=== PATIENT | male | born 1970 | race Caucasian/White ===

== ENCOUNTER 2019-01-22 19:40 | Inpatient (IN) | payer MEDICARE, OTHER ==
--- NOTE | 2019-01-22 20:24 | ED ---
Psych HPI - General Stated Complaint: Mental Health Time Seen by Provider: 01/22/19 19:57 Source: patient, EMS Mode of arrival: EMS Limitations: no limitations - History of Present Illness Initial Comments: 48-year-old male presents emergency department via EMS for psychiatric ev aluation. Patient's been having increasing depression, anxiety issues. Patient states is on medications are not helping. He denies being suicidal or homicidal. Patient states that his father called EMS admitted come to the hospital. Patient has been admitted to psychiatric sodium the past. - Related Data Home Medications Medication Instructions Recorded Confirmed Aspirin EC [Ecotrin Low Dose] 81 mg PO DAILY 01/22/19 01/22/19 Calcium Carbonate [Tums] 500 mg PO TID PRN 01/22/19 01/22/19 Cholecalciferol [Vitamin D3] 3,000 unit PO DAILY 01/22/19 01/22/19 Divalproex [Depakote] 1,000 mg PO BID 01/22/19 01/22/19 Enalapril [Vasotec] 5 mg PO DAILY 01/22/19 01/22/19 Insulin Glargine,Hum.rec.anlog 40 unit SQ HS 01/22/19 01/22/19 [Basaglar Kwikpen U-100] Insulin Regular, Human [NovoLIN R] 10 unit SQ AC-TID 01/22/19 01/22/19 Levothyroxine Sodium [Levoxyl] 125 mcg PO DAILY 01/22/19 01/22/19 [place] Carbonate 600 mg PO BID 01/22/19 01/22/19 Lovastatin [Mevacor] 20 mg PO HS 01/22/19 01/22/19 Tamsulosin [Flomax] 0.4 mg PO DAILY 01/22/19 01/22/19 Trihexyphenidyl HCl 5 mg PO BID 01/22/19 01/22/19 metFORMIN HCL [Glucophage] 1,000 mg PO BID 01/22/19 01/22/19 risperiDONE [RisperDAL] 8 mg PO HS 01/22/19 01/22/19 Allergies Allergy/AdvReac Type Severity Reaction Status Date / Time No Known Allergies Allergy Verified 01/22/19 20:14 Review of Systems ROS Statement: Those systems with pertinent positive or pertinent negative responses have been documented in the HPI. ROS Other: All systems not noted in ROS Statement are negative. Past Medical History Past Medical History: Hypertension History of Any Multi-Drug Resistant Organisms: None Reported Additional Past Surgical History / Comment(s): right and left shoulder repairs, Past Psychological History: Schizoaffective Disorder Smoking Status: Current every day smoker Past Alcohol Use History: None Reported Past Drug Use History: None Reported General Exam Limitations: no limitations General appearance: alert, in no apparent distress Head exam: Present: atraumatic, normocephalic, normal inspection Neck exam: Present: normal inspection. Absent: tenderness, meningismus, lymphadenopathy Respiratory exam: Present: normal lung sounds bilaterally. Absent: respiratory distress, wheezes, rales, rhonchi, stridor Cardiovascular Exam: Present: regular rate, normal rhythm, normal heart sounds. Absent: systolic murmur, diastolic murmur, rubs, gallop, clicks Neurological exam: Present: alert, oriented X3, CN II-XII intact Psychiatric exam: Present: anxious Course Vital Signs 01/22/19 01/23/19 01/23/19 19:44 08:43 20:21 Temperature 97.8 F 97.6 F Pulse Rate 76 55 L 58 L Respiratory 17 18 14 Rate Blood Pressure 150/81 153/70 143/80 O2 Sat by Pulse 96 97 99 Oximetry Medical Decision Making - Lab Data Result diagrams: 01/23/19 13:27 01/23/19 13:27 Lab Results 01/22/19 01/23/19 01/23/19 Range/Units 20:45 06:56 08:23 WBC (3.8-10.6) k/uL RBC (4.30-5.90) m/uL Hgb (13.0-17.5) gm/dL Hct (39.0-53.0) % MCV (80.0-100.0) fL MCH (25.0-35.0) pg MCHC (31.0-37.0) g/dL RDW (11.5-15.5) % Plt Count (150-450) k/uL Neutrophils % % Lymphocytes % % Monocytes % % Eosinophils % % Basophils % % Neutrophils # (1.3-7.7) k/uL Lymphocytes # (1.0-4.8) k/uL Monocytes # (0-1.0) k/uL Eosinophils # (0-0.7) k/uL Basophils # (0-0.2) k/uL Sodium (137-145) mmol/L Potassium (3.5-5.1) mmol/L Chloride (98-107) mmol/L Carbon Dioxide (22-30) mmol/L Anion Gap mmol/L BUN (9-20) mg/dL Creatinine (0.66-1.25) mg/dL Est GFR (CKD-EPI)AfAm (>60 ml/min/1.73 sqM) Est GFR (CKD-EPI)NonAf (>60 ml/min/1.73 sqM) Glucose (74-99) mg/dL POC Glucose (mg/dL) 180 H 358 H (75-99) mg/dL POC Glu [employer] ID Savanna Pyle Meghan Calcium (8.4-10.2) mg/dL Total Bilirubin (0.2-1.3) mg/dL AST (17-59) U/L ALT (21-72) U/L Alkaline Phosphatase (38-126) U/L Total Protein (6.3-8.2) g/dL Albumin (3.5-5.0) g/dL Urine Color Urine Appearance (Clear) Urine pH (5.0-8.0) Ur Specific [place] (1.001-1.035) Urine Protein (Negative) Urine Glucose (UA) (Negative) Urine Ketones (Negative) Urine Blood (Negative) Urine Nitrite (Negative) Urine Bilirubin (Negative) Urine Urobilinogen (<2.0) mg/dL Ur Leukocyte Esterase (Negative) Urine RBC (0-5) /hpf Urine Opiates Screen Not Detected (NotDetected) Ur Oxycodone Screen Not Detected (NotDetected) Urine Methadone Screen Not Detected (NotDetected) Ur Propoxyphene Screen Not Detected (NotDetected) Ur Barbiturates Screen Not Detected (NotDetected) U Tricyclic Antidepress Not Detected (NotDetected) Ur Phencyclidine Scrn Not Detected (NotDetected) Ur Amphetamines Screen Not Detected (NotDetected) U Methamphetamines Scrn Not Detected (NotDetected) U Benzodiazepines Scrn Not Detected (NotDetected) Urine Cocaine Screen Not Detected (NotDetected) U Marijuana (THC) Screen Detected H (NotDetected) 01/23/19 01/23/19 01/23/19 Range/Units 09:06 12:02 12:48 WBC (3.8-10.6) k/uL RBC (4.30-5.90) m/uL Hgb (13.0-17.5) gm/dL Hct (39.0-53.0) % MCV (80.0-100.0) fL MCH (25.0-35.0) pg MCHC (31.0-37.0) g/dL RDW (11.5-15.5) % Plt Count (150-450) k/uL Neutrophils % % Lymphocytes % % Monocytes % % Eosinophils % % Basophils % % Neutrophils # (1.3-7.7) k/uL Lymphocytes # (1.0-4.8) k/uL Monocytes # (0-1.0) k/uL Eosinophils # (0-0.7) k/uL Basophils # (0-0.2) k/uL Sodium (137-145) mmol/L Potassium (3.5-5.1) mmol/L Chloride (98-107) mmol/L Carbon Dioxide (22-30) mmol/L Anion Gap mmol/L BUN (9-20) mg/dL Creatinine (0.66-1.25) mg/dL Est GFR (CKD-EPI)AfAm (>60 ml/min/1.73 sqM) Est GFR (CKD-EPI)NonAf (>60 ml/min/1.73 sqM) Glucose (74-99) mg/dL POC Glucose (mg/dL) 341 H 166 H 245 H (75-99) mg/dL POC Glu [employer] ID Saji Perez, Dimple Darion, Dimple Calcium (8.4-10.2) mg/dL Total Bilirubin (0.2-1.3) mg/dL AST (17-59) U/L ALT (21-72) U/L Alkaline Phosphatase (38-126) U/L Total Protein (6.3-8.2) g/dL Albumin (3.5-5.0) g/dL Urine Color Urine Appearance (Clear) Urine pH (5.0-8.0) Ur Specific [place] (1.001-1.035) Urine Protein (Negative) Urine Glucose (UA) (Negative) Urine Ketones (Negative) Urine Blood (Negative) Urine Nitrite (Negative) Urine Bilirubin (Negative) Urine Urobilinogen (<2.0) mg/dL Ur Leukocyte Esterase (Negative) Urine RBC (0-5) /hpf Urine Opiates Screen (NotDetected) Ur Oxycodone Screen (NotDetected) Urine Methadone Screen (NotDetected) Ur Propoxyphene Screen (NotDetected) Ur Barbiturates Screen (NotDetected) U Tricyclic Antidepress (NotDetected) Ur Phencyclidine Scrn (NotDetected) Ur Amphetamines Screen (NotDetected) U Methamphetamines Scrn (NotDetected) U Benzodiazepines Scrn (NotDetected) Urine Cocaine Screen (NotDetected) U Marijuana (THC) Screen (NotDetected) 01/23/19 01/23/19 01/23/19 Range/Units 13:27 13:27 13:35 WBC 7.6 (3.8-10.6) k/uL RBC 5.51 (4.30-5.90) m/uL Hgb 14.8 (13.0-17.5) gm/dL Hct 47.5 (39.0-53.0) % MCV 86.2 (80.0-100.0) fL MCH 26.8 (25.0-35.0) pg MCHC 31.1 (31.0-37.0) g/dL RDW 14.4 (11.5-15.5) % Plt Count 209 (150-450) k/uL Neutrophils % 63 % Lymphocytes % 28 % Monocytes % 4 % Eosinophils % 3 % Basophils % 1 % Neutrophils # 4.8 (1.3-7.7) k/uL Lymphocytes # 2.2 (1.0-4.8) k/uL Monocytes # 0.3 (0-1.0) k/uL Eosinophils # 0.2 (0-0.7) k/uL Basophils # 0.1 (0-0.2) k/uL Sodium 139 (137-145) mmol/L Potassium 4.7 (3.5-5.1) mmol/L Chloride 103 (98-107) mmol/L Carbon Dioxide 30 (22-30) mmol/L Anion Gap 6 mmol/L BUN 17 (9-20) mg/dL Creatinine 0.98 (0.66-1.25) mg/dL Est GFR (CKD-EPI)AfAm >90 (>60 ml/min/1.73 sqM) Est GFR (CKD-EPI)NonAf >90 (>60 ml/min/1.73 sqM) Glucose 242 H (74-99) mg/dL POC Glucose (mg/dL) (75-99) mg/dL POC Glu [employer] ID Calcium 9.7 (8.4-10.2) mg/dL Total Bilirubin 0.4 (0.2-1.3) mg/dL AST 22 (17-59) U/L ALT 32 (21-72) U/L Alkaline Phosphatase 79 (38-126) U/L Total Protein 6.6 (6.3-8.2) g/dL Albumin 3.9 (3.5-5.0) g/dL Urine Color Light Yellow Urine Appearance Cloudy (Clear) Urine pH 7.0 (5.0-8.0) Ur Specific [place] 1.004 (1.001-1.035) Urine Protein Negative (Negative) Urine Glucose (UA) 1+ H (Negative) Urine Ketones Negative (Negative) Urine Blood Negative (Negative) Urine Nitrite Negative (Negative) Urine Bilirubin Negative (Negative) Urine Urobilinogen <2.0 (<2.0) mg/dL Ur Leukocyte Esterase Negative (Negative) Urine RBC <1 (0-5) /hpf Urine Opiates Screen Not Detected (NotDetected) Ur Oxycodone Screen Not Detected (NotDetected) Urine Methadone Screen Not Detected (NotDetected) Ur Propoxyphene Screen Not Detected (NotDetected) Ur Barbiturates Screen Not Detected (NotDetected) U Tricyclic Antidepress Not Detected (NotDetected) Ur Phencyclidine Scrn Not Detected (NotDetected) Ur Amphetamines Screen Not Detected (NotDetected) U Methamphetamines Scrn Not Detected (NotDetected) U Benzodiazepines Scrn Not Detected (NotDetected) Urine Cocaine Screen Not Detected (NotDetected) U Marijuana (THC) Screen Detected H (NotDetected) 01/23/19 Range/Units 20:31 WBC (3.8-10.6) k/uL RBC (4.30-5.90) m/uL Hgb (13.0-17.5) gm/dL Hct (39.0-53.0) % MCV (80.0-100.0) fL MCH (25.0-35.0) pg MCHC (31.0-37.0) g/dL RDW (11.5-15.5) % Plt Count (150-450) k/uL Neutrophils % % Lymphocytes % % Monocytes % % Eosinophils % % Basophils % % Neutrophils # (1.3-7.7) k/uL Lymphocytes # (1.0-4.8) k/uL Monocytes # (0-1.0) k/uL Eosinophils # (0-0.7) k/uL Basophils # (0-0.2) k/uL Sodium (137-145) mmol/L Potassium (3.5-5.1) mmol/L Chloride (98-107) mmol/L Carbon Dioxide (22-30) mmol/L Anion Gap mmol/L BUN (9-20) mg/dL Creatinine (0.66-1.25) mg/dL Est GFR (CKD-EPI)AfAm (>60 ml/min/1.73 sqM) Est GFR (CKD-EPI)NonAf (>60 ml/min/1.73 sqM) Glucose (74-99) mg/dL POC Glucose (mg/dL) 189 H (75-99) mg/dL POC Glu [employer] Mechanic ID Oswaldo Collins A Calcium (8.4-10.2) mg/dL Total Bilirubin (0.2-1.3) mg/dL AST (17-59) U/L ALT (21-72) U/L Alkaline Phosphatase (38-126) U/L Total Protein (6.3-8.2) g/dL Albumin (3.5-5.0) g/dL Urine Color Urine Appearance (Clear) Urine pH (5.0-8.0) Ur Specific [place] (1.001-1.035) Urine Protein (Negative) Urine Glucose (UA) (Negative) Urine Ketones (Negative) Urine Blood (Negative) Urine Nitrite (Negative) Urine Bilirubin (Negative) Urine Urobilinogen (<2.0) mg/dL Ur Leukocyte Esterase (Negative) Urine RBC (0-5) /hpf Urine Opiates Screen (NotDetected) Ur Oxycodone Screen (NotDetected) Urine Methadone Screen (NotDetected) Ur Propoxyphene Screen (NotDetected) Ur Barbiturates Screen (NotDetected) U Tricyclic Antidepress (NotDetected) Ur Phencyclidine Scrn (NotDetected) Ur Amphetamines Screen (NotDetected) U Methamphetamines Scrn (NotDetected) U Benzodiazepines Scrn (NotDetected) Urine Cocaine Screen (NotDetected) U Marijuana (THC) Screen (NotDetected) Disposition Clinical Impression: Schizoaffective disorder, Depression, Acute anxiety Disposition: TRANSFER TO PSYCH HOSP/UNIT Condition: Stable
[2019-01-22 21:09] LABS: Amphetamine Screen,Urine Not Detected (NotDetected); Barbiturate Screen,Urine Not Detected (NotDetected); Benzodiazepines Screen,Urine Not Detected (NotDetected); Cocaine Screen,Urine Not Detected (NotDetected); Methadone Screen, Urine Not Detected (NotDetected); Opiate Screen,Urine Not Detected (NotDetected); Phencyclidine Screen,Urine Not Detected (NotDetected); Tricyclic Antidepressant,Urine Not Detected (NotDetected); Urn Cannabinoid Scrn Detected (NotDetected)
[2019-01-22 21:10] LABS: Oxycodone Screen, Urine Not Detected (NotDetected)
[2019-01-23] MEDS ORDERED: ZIPRASIDONE 20 MG CAP PO STA (02:15)
[2019-01-23] MEDS ORDERED: ZIPRASIDONE 20 MG VIAL IM STA (02:15)
[2019-01-23] MEDS ORDERED: ZOLPIDEM 10 MG TAB PO ONE (04:30)
[2019-01-23 06:58] LABS: Glucose,Whole Blood 180 mg/dL (75-99)
[2019-01-23 08:24] LABS: Glucose,Whole Blood 358 mg/dL (75-99)
[2019-01-23] MEDS: INSULIN REGULAR 100 UNIT/ML VIAL SQ SCH ×2 (08:24→12:00)
[2019-01-23] MEDS: LITHIUM CARBONATE 300 MG CAP PO SCH ×2 (08:28→22:31)
[2019-01-23] MEDS: DIVALPROEX 500 MG TABLET.DR PO SCH ×2 (08:36→22:29)
[2019-01-23 09:08] LABS: Glucose,Whole Blood 341 mg/dL (75-99)
[2019-01-23 12:04] LABS: Glucose,Whole Blood 166 mg/dL (75-99)
[2019-01-23 12:49] LABS: Glucose,Whole Blood 245 mg/dL (75-99)
[2019-01-23 13:41] LABS: Basophils # (A) 0.1 k/uL (0-0.2); Basophils % (A) 1 %; Eosinophils # (A) 0.2 k/uL (0-0.7); Eosinophils % (A) 3 %; HCT 47.5 % (39.0-53.0); HGB 14.8 gm/dL (13.0-17.5); Lymphocytes # (A) 2.2 k/uL (1.0-4.8); Lymphocytes % (A) 28 %; MCH 26.8 pg (25.0-35.0); MCHC 31.1 g/dL (31.0-37.0); MCV 86.2 fL (80.0-100.0); Mean Platelet Volume 6.8; Monocytes # (A) 0.3 k/uL (0-1.0); Monocytes % (A) 4 %; Neutrophils # (A) 4.8 k/uL (1.3-7.7); Neutrophils % (A) 63 %; Platelet Count 209 k/uL (150-450); RBC 5.51 m/uL (4.30-5.90); RDW 14.4 % (11.5-15.5); WBC 7.6 k/uL (3.8-10.6)
[2019-01-23 13:53] LABS: ALT 32 U/L (21-72); AST 22 U/L (17-59); Albumin 3.9 g/dL (3.5-5.0); Alkaline Phosphatase 79 U/L (38-126); Anion Gap 6 mmol/L; Blood Urea Nitrogen 17 mg/dL (9-20); Calcium 9.7 mg/dL (8.4-10.2); Carbon Dioxide 30 mmol/L (22-30); Chloride 103 mmol/L (98-107); Glucose 242 mg/dL (74-99); Potassium 4.7 mmol/L (3.5-5.1); Sodium 139 mmol/L (137-145); Total Bilirubin 0.4 mg/dL (0.2-1.3); Total Protein 6.6 g/dL (6.3-8.2)
[2019-01-23 14:03] LABS: Appearance,Urine Cloudy (Clear); Bilirubin,Urine Negative (Negative); Blood,Urine Negative (Negative); Color,Urine Light Yellow; Glucose,Urine (UA) 1+ (Negative); Ketones,Urine Negative (Negative); Leukocyte Esterase,Urine Negative (Negative); Nitrite,Urine Negative (Negative); Protein,Urine Negative (Negative); RBC,Urine <1 /hpf (0-5); Specific Gravity,Urine 1.004 (1.001-1.035); Urobilinogen,Urine <2.0 mg/dL (<2.0)
[2019-01-23 14:19] LABS: Amphetamine Screen,Urine Not Detected (NotDetected); Barbiturate Screen,Urine Not Detected (NotDetected); Benzodiazepines Screen,Urine Not Detected (NotDetected); Cocaine Screen,Urine Not Detected (NotDetected); Methadone Screen, Urine Not Detected (NotDetected); Opiate Screen,Urine Not Detected (NotDetected); Oxycodone Screen, Urine Not Detected (NotDetected); Phencyclidine Screen,Urine Not Detected (NotDetected); Tricyclic Antidepressant,Urine Not Detected (NotDetected); Urn Cannabinoid Scrn Detected (NotDetected)
[2019-01-23 20:32] LABS: Glucose,Whole Blood 189 mg/dL (75-99)
[2019-01-23] MEDS ORDERED: MAG HYDROX/AL HYDROX/SIMETH 30 ML CUP PO PRN (21:46)
[2019-01-23] MEDS ORDERED: ZIPRASIDONE 20 MG VIAL IM PRN (21:46)
[2019-01-23] MEDS ORDERED: LORazepam 1 MG TAB PO PRN (21:46)
[2019-01-23] MEDS ORDERED: ACETAMINOPHEN TAB 325 MG TAB PO PRN (21:46)
[2019-01-23] MEDS ORDERED: MAGNESIUM HYDROXIDE 2,400 MG/10 ML CUP PO PRN (21:46)
[2019-01-23 22:10] LABS: Glucose,Whole Blood 196 mg/dL (75-99)
[2019-01-24] MEDS ORDERED: CALCIUM CARBONATE 500 MG CHEWABLE PO PRN (00:27)
--- NOTE | 2019-01-24 00:30 | P.HPMEDMHU ---
History of Present Illness H&P Date: 01/24/19 (Consult from Dr. Gomez for HPI) Chief Complaint: U HPI The patient is a 48-year-old male the past focal history of schizoaffective with his schizophrenia and bipolar disorder, type 2 diabetes, dyslipidemia, pH who is admitted to the acute inpatient psychiatry unit after he was brought to the ER by the [facility] Apparently the patient's father reported that his son put been living with him for the last 2 weeks has been having increased erratic behavior. Apparently the patient stopped taking his medications approximately 2 weeks ago despite his active court order for mental health treatment, the patient's father reports the patient has been mumbling to himself and talking to himself and also went into a neighbor's home and went through their belongings. The patient himself denies any complaints today, reports a history of type 2 diabetes that his A1c is relatively well controlled At 6.5. She denies any chest pain, shortness of breath, or hypoglycemic episodes. UDS done in the ER was positive for THC Review of Systems Pertinent positives per HPI all other of systems otherwise negative Past Medical History Past Medical History: Hypertension History of Any Multi-Drug Resistant Organisms: None Reported Additional Past Surgical History / Comment(s): right and left shoulder repairs, Past Psychological History: Schizoaffective Disorder Smoking Status: Current every day smoker Past Alcohol Use History: None Reported Past Drug Use History: None Reported Medications and Allergies Home Medications Medication Instructions Recorded Confirmed Type Aspirin EC [Ecotrin Low Dose] 81 mg PO DAILY 01/22/19 01/22/19 History Calcium Carbonate [Tums] 500 mg PO TID PRN 01/22/19 01/22/19 History Cholecalciferol [Vitamin D3] 3,000 unit PO DAILY 01/22/19 01/22/19 History Divalproex [Depakote] 1,000 mg PO BID 01/22/19 01/22/19 History Enalapril [Vasotec] 5 mg PO DAILY 01/22/19 01/22/19 History Insulin Glargine,Hum.rec.anlog 40 unit SQ HS 01/22/19 01/22/19 History [Basagljohnnie Collins U-100] Insulin Regular, Human [NovoLIN R] 10 unit SQ AC-TID 01/22/19 01/22/19 History Levothyroxine Sodium [Levoxyl] 125 mcg PO DAILY 01/22/19 01/22/19 History [place] Carbonate 600 mg PO BID 01/22/19 01/22/19 History Lovastatin [Mevacor] 20 mg PO HS 01/22/19 01/22/19 History Tamsulosin [Flomax] 0.4 mg PO DAILY 01/22/19 01/22/19 History Trihexyphenidyl HCl 5 mg PO BID 01/22/19 01/22/19 History metFORMIN HCL [Glucophage] 1,000 mg PO BID 01/22/19 01/22/19 History risperiDONE [RisperDAL] 8 mg PO HS 01/22/19 01/22/19 History Allergies Allergy/AdvReac Type Severity Reaction Status Date / Time No Known Allergies Allergy Verified 01/22/19 20:14 Physical Exam Vitals: Vital Signs Temp Pulse Resp BP Pulse Ox 01/23/19 20:21 97.6 F 58 L 14 143/80 99 01/23/19 08:43 55 L 18 153/70 97 Constitutional: No acute distress, conversant, pleasant Eyes: Anicteric sclerae, moist conjunctiva, no lid-lag, PERRLA ENMT: NC/AT,Oropharynx clear, no erythema, exudates Neck:Supple, FROM, no masses, or JVD, No carotid bruits; No thyromegaly Lungs: Clear to auscultation, Clear to percussion, Normal respiratory effort, no accessory muscle use Cardiovascular: Heart regular in rate and rhythm, No murmurs, gallops, or rubs no peripheral edema Abdominal: Soft Nontender, nom distended, no guarding, no rebound or rigidity, Normoactive bowel sounds No hepatomegaly, No splenomegaly, No palpable mass No abdominal wall hernia noted Skin: Normal temperature, tone, texture, turgor, No induration No subcutaneous nodules, No rash, lesions, No ulcers Extremities:No digital cyanosis No clubbing, Pedal pulses intact and symmetrical Radial pulses intact and symmetrical Normal gait and station, No calf tenderness Psychiatric: Denies suicidal or homicidal ideation denying delusions or paranoia Neuro: Muscles Strength 5/5 in all 4 extremities, Sensation to light touch grossly present throughout, Cranial nerves II-XII grossly intact. No focal sensory deficits Cranial Nerve Examination - Cranial Nerves Cranial Nerve II- Optic: Intact Cranial Nerve III- Oculomotor: Intact Cranial Nerve IV- Trochlear: Intact Cranial Nerve V- Trigeminal: Intact Cranial Nerve - Abducens: Intact Cranial Nerve VII- Facial: Intact Cranial Nerve VIII- Auditory: Intact Cranial Nerve IX- Glossopharyngeal: Intact Cranial Nerve X- Vagus: Intact Cranial Nerve XI- Accessory: Intact Cranial Nerve XII- Hypoglossal: Intact Results CBC & Chem 7: 01/23/19 13:27 01/23/19 13:27 Labs: Abnormal Lab Results - Last 24 Hours (Table) 01/23/19 01/23/19 01/23/19 Range/Units 06:56 08:23 09:06 Glucose (74-99) mg/dL POC Glucose (mg/dL) 180 H 358 H 341 H (75-99) mg/dL Urine Glucose (UA) (Negative) U Marijuana (THC) Screen (NotDetected) 01/23/19 01/23/19 01/23/19 Range/Units 12:02 12:48 13:27 Glucose 242 H (74-99) mg/dL POC Glucose (mg/dL) 166 H 245 H (75-99) mg/dL Urine Glucose (UA) (Negative) U Marijuana (THC) Screen (NotDetected) 01/23/19 01/23/19 01/23/19 Range/Units 13:35 20:31 22:09 Glucose (74-99) mg/dL POC Glucose (mg/dL) 189 H 196 H (75-99) mg/dL Urine Glucose (UA) 1+ H (Negative) U Marijuana (THC) Screen Detected H (NotDetected) Assessment and Plan (1) Schizoaffective disorder Current Visit: Yes Status: Acute Code(s): F25.9 - SCHIZOAFFECTIVE DISORDER, UNSPECIFIED SNOMED Code(s): 48785771 (2) Type 2 diabetes mellitus Current Visit: Yes Status: Acute Code(s): E11.9 - TYPE 2 DIABETES MELLITUS WITHOUT COMPLICATIONS SNOMED Code(s): 49231402 (3) Hyperlipidemia Current Visit: Yes Status: Acute Code(s): E78.5 - HYPERLIPIDEMIA, UNSPECIFIED SNOMED Code(s): 54686584 (4) Essential hypertension Current Visit: Yes Status: Acute Code(s): I10 - ESSENTIAL (PRIMARY) HYPERTENSION SNOMED Code(s): 12103879 (5) History of BPH Current Visit: Yes Status: Acute Code(s): Z87.438 - PERSONAL HISTORY OF OTHER DISEASES OF MALE GENITAL ORGANS SNOMED Code(s): 425512222 (6) Marijuana abuse Current Visit: Yes Status: Acute Code(s): F12.10 - CANNABIS ABUSE, [facility] OMPLICATED SNOMED Code(s): 07726856 Plan: The patient is admitted to the acute inpatient psychiatry unit we'll defer to primary psychiatry team under Dr. Gomez for ongoing psychotropic therapy in coordination with cognitive behavioral therapy. The patient's blood pressure is slightly elevated we'll restart use of his SALOME inhibitor. We'll also continue Accu-Cheks along with resumption of his home insulin regimen along with correctional scale coverage. Will plan to sign off on this patient I appreciate the opportunity to be involved in ongoing care of this patient, for any further questions please don't hesitate to contact the [facility] inpatient team
[2019-01-24] MEDS ORDERED: LORazepam 2 MG/ML INJ IM STA (04:13)
[2019-01-24] MEDS ORDERED: LORazepam 2 MG/ML INJ IM PRN (04:58)
[2019-01-24] MEDS: INSULIN REGULAR 100 UNIT/ML VIAL SQ SCH ×4 (07:33→18:02)
[2019-01-24 07:41] LABS: Glucose,Whole Blood 234 mg/dL (75-99)
[2019-01-24] MEDS: LEVOTHYROXINE 125 MCG TAB PO SCH (07:43)
[2019-01-24] MEDS: TRIHEXYPHENIDYL 2 MG TAB PO SCH ×3 (07:43→20:24)
[2019-01-24] MEDS: CHOLECALCIFEROL 1,000 UNIT TAB PO SCH (07:44)
[2019-01-24] MEDS: metFORMIN 500 MG TAB PO SCH ×2 (07:45→20:25)
[2019-01-24] MEDS: TAMSULOSIN 0.4 MG CAP.ER.24H PO SCH (07:45)
[2019-01-24] MEDS: DIVALPROEX 500 MG TABLET.DR PO SCH ×3 (07:45→20:24)
[2019-01-24] MEDS: LISINOPRIL 5 MG TAB PO SCH (07:46)
[2019-01-24] MEDS: LITHIUM CARBONATE 300 MG CAP PO SCH ×3 (07:46→20:24)
[2019-01-24] MEDS: ASPIRIN 81 MG PO SCH (07:52)
[2019-01-24] MEDS: NICOTINE 21MG/24HR PATCH TRANSDERM SCH (07:54)
[2019-01-24] MEDS ORDERED: DIVALPROEX 500 MG TABLET.DR PO SCH (09:00)
[2019-01-24 09:01] LABS: Lithium <0.2 mmol/L
[2019-01-24 09:06] LABS: Cholesterol 194 mg/dL (<200); HDL Cholesterol 47 mg/dL (40-60); LDL Cholesterol,Calculated 106 mg/dL (0-99); Triglycerides 206 mg/dL (<150)
[2019-01-24 09:09] LABS: Valproic Acid (Depakene) <10.0 ug/mL
[2019-01-24 12:29] LABS: Glucose,Whole Blood 189 mg/dL (75-99)
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
[2019-01-24 17:31] LABS: Glucose,Whole Blood 172 mg/dL (75-99)
[2019-01-24 20:13] LABS: Glucose,Whole Blood 209 mg/dL (75-99)
[2019-01-24] MEDS: risperiDONE 2 MG TAB PO SCH (20:24)
[2019-01-24] MEDS: ATORVASTATIN 10 MG TAB PO SCH (20:25)
[2019-01-24] MEDS: INSULIN DETEMIR (LEVEMIR) 100 UNIT/ML SYR SQ SCH (20:26)
[2019-01-24] MEDS ORDERED: INSULIN DETEMIR (LEVEMIR) 100 UNIT/ML SYR SQ SCH (21:00)
[2019-01-25] MEDS: LORazepam 1 MG TAB PO PRN (00:41)
[2019-01-25] MEDS: LEVOTHYROXINE 125 MCG TAB PO SCH (06:24)
[2019-01-25 06:41] LABS: Glucose,Whole Blood 159 mg/dL (75-99)
[2019-01-25] MEDS: INSULIN REGULAR 100 UNIT/ML VIAL SQ SCH ×3 (08:22→17:56)
[2019-01-25] MEDS: LISINOPRIL 5 MG TAB PO SCH (09:59)
[2019-01-25] MEDS: DIVALPROEX 500 MG TABLET.DR PO SCH ×2 (09:59→22:04)
[2019-01-25] MEDS: TAMSULOSIN 0.4 MG CAP.ER.24H PO SCH (09:59)
[2019-01-25] MEDS: LITHIUM CARBONATE 300 MG CAP PO SCH ×2 (10:00→22:05)
[2019-01-25] MEDS: metFORMIN 500 MG TAB PO SCH ×2 (10:00→22:03)
[2019-01-25] MEDS: ASPIRIN 81 MG PO SCH (10:01)
[2019-01-25] MEDS: CHOLECALCIFEROL 1,000 UNIT TAB PO SCH (10:02)
[2019-01-25] MEDS: TRIHEXYPHENIDYL 2 MG TAB PO SCH ×2 (10:03→22:04)
[2019-01-25] MEDS: NICOTINE 21MG/24HR PATCH TRANSDERM SCH (10:04)
[2019-01-25 12:29] LABS: Glucose,Whole Blood 259 mg/dL (75-99)
[2019-01-25 12:31] LABS: Hemoglobin A1C 7.5 % (4.0-6.0)
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
[2019-01-25 17:52] LABS: Glucose,Whole Blood 219 mg/dL (75-99)
[2019-01-25 20:16] LABS: Glucose,Whole Blood 331 mg/dL (75-99)
[2019-01-25] MEDS: INSULIN DETEMIR (LEVEMIR) 100 UNIT/ML SYR SQ SCH (22:02)
[2019-01-25] MEDS: risperiDONE 2 MG TAB PO SCH (22:03)
[2019-01-25] MEDS: ATORVASTATIN 10 MG TAB PO SCH (22:04)
[2019-01-26] MEDS: LORazepam 1 MG TAB PO PRN (01:39)
[2019-01-26] MEDS: LEVOTHYROXINE 125 MCG TAB PO SCH (05:41)
[2019-01-26 06:14] LABS: Glucose,Whole Blood 140 mg/dL (75-99)
[2019-01-26] MEDS: INSULIN REGULAR 100 UNIT/ML VIAL SQ SCH ×3 (07:55→17:45)
[2019-01-26] MEDS: DIVALPROEX 500 MG TABLET.DR PO SCH ×2 (08:18→21:24)
[2019-01-26] MEDS: CHOLECALCIFEROL 1,000 UNIT TAB PO SCH (08:18)
[2019-01-26] MEDS: metFORMIN 500 MG TAB PO SCH ×2 (08:18→21:24)
[2019-01-26] MEDS: LISINOPRIL 5 MG TAB PO SCH (08:18)
[2019-01-26] MEDS: LITHIUM CARBONATE 300 MG CAP PO SCH ×2 (08:18→21:24)
[2019-01-26] MEDS: ASPIRIN 81 MG PO SCH (08:18)
[2019-01-26] MEDS: TRIHEXYPHENIDYL 2 MG TAB PO SCH ×2 (08:19→21:23)
[2019-01-26] MEDS: NICOTINE 21MG/24HR PATCH TRANSDERM SCH (08:19)
[2019-01-26] MEDS: TAMSULOSIN 0.4 MG CAP.ER.24H PO SCH (08:19)
[2019-01-26 12:27] LABS: Glucose,Whole Blood 166 mg/dL (75-99)
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
[2019-01-26 17:24] LABS: Glucose,Whole Blood 225 mg/dL (75-99)
[2019-01-26 20:08] LABS: Glucose,Whole Blood 230 mg/dL (75-99)
[2019-01-26] MEDS ORDERED: INSULIN DETEMIR (LEVEMIR) 100 UNIT/ML SYR SQ SCH (21:00)
[2019-01-26] MEDS: ATORVASTATIN 10 MG TAB PO SCH (21:24)
[2019-01-26] MEDS: risperiDONE 2 MG TAB PO SCH (21:24)
[2019-01-27] MEDS: LEVOTHYROXINE 125 MCG TAB PO SCH (05:57)
[2019-01-27 06:17] LABS: Glucose,Whole Blood 182 mg/dL (75-99)
[2019-01-27] MEDS: INSULIN REGULAR 100 UNIT/ML VIAL SQ SCH ×3 (08:02→17:31)
[2019-01-27] MEDS: NICOTINE 21MG/24HR PATCH TRANSDERM SCH (08:32)
[2019-01-27] MEDS: ASPIRIN 81 MG PO SCH (08:32)
[2019-01-27] MEDS: CHOLECALCIFEROL 1,000 UNIT TAB PO SCH (08:32)
[2019-01-27] MEDS: TRIHEXYPHENIDYL 2 MG TAB PO SCH ×2 (08:33→20:16)
[2019-01-27] MEDS: metFORMIN 500 MG TAB PO SCH ×2 (08:33→20:16)
[2019-01-27] MEDS: DIVALPROEX 500 MG TABLET.DR PO SCH ×2 (08:33→20:16)
[2019-01-27] MEDS: LITHIUM CARBONATE 300 MG CAP PO SCH ×2 (08:33→20:16)
[2019-01-27] MEDS: TAMSULOSIN 0.4 MG CAP.ER.24H PO SCH (08:33)
[2019-01-27] MEDS: LISINOPRIL 5 MG TAB PO SCH (08:33)
[2019-01-27 12:32] LABS: Glucose,Whole Blood 180 mg/dL (75-99)
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
[2019-01-27 17:24] LABS: Glucose,Whole Blood 194 mg/dL (75-99)
[2019-01-27] MEDS: INSULIN ASPART (NovoLOG) 100 UNIT/ML VIAL SQ SCH ×2 (17:32→20:17)
[2019-01-27 20:06] LABS: Glucose,Whole Blood 234 mg/dL (75-99)
[2019-01-27] MEDS: ATORVASTATIN 10 MG TAB PO SCH (20:16)
[2019-01-27] MEDS: risperiDONE 2 MG TAB PO SCH (20:16)
[2019-01-27] MEDS: INSULIN DETEMIR (LEVEMIR) 100 UNIT/ML SYR SQ SCH (20:17)
[2019-01-27] MEDS: LORazepam 1 MG TAB PO PRN (22:47)
[2019-01-28 07:23] LABS: Glucose,Whole Blood 159 mg/dL (75-99)
[2019-01-28] MEDS: LEVOTHYROXINE 125 MCG TAB PO SCH (07:23)
[2019-01-28] MEDS: INSULIN ASPART (NovoLOG) 100 UNIT/ML VIAL SQ SCH ×4 (07:49→21:21)
[2019-01-28] MEDS: INSULIN REGULAR 100 UNIT/ML VIAL SQ SCH ×3 (07:50→17:46)
[2019-01-28] MEDS: CHOLECALCIFEROL 1,000 UNIT TAB PO SCH (08:53)
[2019-01-28] MEDS: ASPIRIN 81 MG PO SCH (08:53)
[2019-01-28] MEDS: DIVALPROEX 500 MG TABLET.DR PO SCH ×2 (08:54→20:47)
[2019-01-28] MEDS: metFORMIN 500 MG TAB PO SCH ×2 (08:54→20:50)
[2019-01-28] MEDS: TRIHEXYPHENIDYL 2 MG TAB PO SCH ×2 (08:54→20:47)
[2019-01-28] MEDS: TAMSULOSIN 0.4 MG CAP.ER.24H PO SCH (08:54)
[2019-01-28] MEDS: LISINOPRIL 5 MG TAB PO SCH (08:54)
[2019-01-28] MEDS: LITHIUM CARBONATE 300 MG CAP PO SCH ×2 (08:54→20:48)
[2019-01-28] MEDS: NICOTINE 21MG/24HR PATCH TRANSDERM SCH (09:01)
[2019-01-28 12:43] LABS: Glucose,Whole Blood 121 mg/dL (75-99)
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
[2019-01-28 17:21] LABS: Glucose,Whole Blood 246 mg/dL (75-99)
[2019-01-28 20:22] LABS: Glucose,Whole Blood 260 mg/dL (75-99)
[2019-01-28] MEDS: ATORVASTATIN 10 MG TAB PO SCH (20:48)
[2019-01-28] MEDS: risperiDONE 2 MG TAB PO SCH (20:48)
[2019-01-28] MEDS: INSULIN DETEMIR (LEVEMIR) 100 UNIT/ML SYR SQ SCH (21:21)
[2019-01-29] MEDS: LORazepam 1 MG TAB PO PRN ×2 (00:38→22:05)
[2019-01-29] MEDS: LEVOTHYROXINE 125 MCG TAB PO SCH (06:03)
[2019-01-29 06:28] LABS: Glucose,Whole Blood 158 mg/dL (75-99)
[2019-01-29] MEDS: INSULIN REGULAR 100 UNIT/ML VIAL SQ SCH ×3 (07:41→18:11)
[2019-01-29] MEDS: INSULIN ASPART (NovoLOG) 100 UNIT/ML VIAL SQ SCH ×4 (07:43→21:41)
[2019-01-29] MEDS: LISINOPRIL 5 MG TAB PO SCH (07:45)
[2019-01-29] MEDS: ASPIRIN 81 MG PO SCH (07:45)
[2019-01-29] MEDS: LITHIUM CARBONATE 300 MG CAP PO SCH ×2 (07:45→21:59)
[2019-01-29] MEDS: metFORMIN 500 MG TAB PO SCH ×2 (07:45→21:59)
[2019-01-29] MEDS: DIVALPROEX 500 MG TABLET.DR PO SCH ×2 (07:45→21:59)
[2019-01-29] MEDS: CHOLECALCIFEROL 1,000 UNIT TAB PO SCH (07:45)
[2019-01-29] MEDS: NICOTINE 21MG/24HR PATCH TRANSDERM SCH (07:46)
[2019-01-29] MEDS: TRIHEXYPHENIDYL 2 MG TAB PO SCH ×2 (07:46→22:00)
[2019-01-29] MEDS: TAMSULOSIN 0.4 MG CAP.ER.24H PO SCH (07:46)
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
[2019-01-29 12:40] LABS: Glucose,Whole Blood 148 mg/dL (75-99)
[2019-01-29 18:11] LABS: Glucose,Whole Blood 203 mg/dL (75-99)
[2019-01-29 19:57] LABS: Glucose,Whole Blood 269 mg/dL (75-99)
[2019-01-29] MEDS: INSULIN DETEMIR (LEVEMIR) 100 UNIT/ML SYR SQ SCH (21:42)
[2019-01-29] MEDS: risperiDONE 2 MG TAB PO SCH (21:59)
[2019-01-29] MEDS: ATORVASTATIN 10 MG TAB PO SCH (21:59)
[2019-01-30] MEDS: LEVOTHYROXINE 125 MCG TAB PO SCH (06:13)
[2019-01-30 06:24] LABS: Glucose,Whole Blood 155 mg/dL (75-99)
[2019-01-30] MEDS: ASPIRIN 81 MG PO SCH (08:51)
[2019-01-30] MEDS: metFORMIN 500 MG TAB PO SCH ×2 (08:51→21:27)
[2019-01-30] MEDS: DIVALPROEX 500 MG TABLET.DR PO SCH ×2 (08:51→21:28)
[2019-01-30] MEDS: LITHIUM CARBONATE 300 MG CAP PO SCH ×2 (08:51→21:27)
[2019-01-30] MEDS: TRIHEXYPHENIDYL 2 MG TAB PO SCH ×2 (08:51→21:28)
[2019-01-30] MEDS: CHOLECALCIFEROL 1,000 UNIT TAB PO SCH (08:52)
[2019-01-30] MEDS: LISINOPRIL 5 MG TAB PO SCH (08:52)
[2019-01-30] MEDS: INSULIN ASPART (NovoLOG) 100 UNIT/ML VIAL SQ SCH ×4 (08:55→21:28)
[2019-01-30] MEDS: INSULIN REGULAR 100 UNIT/ML VIAL SQ SCH ×3 (08:56→18:45)
[2019-01-30] MEDS: NICOTINE 21MG/24HR PATCH TRANSDERM SCH (08:59)
[2019-01-30] MEDS: TAMSULOSIN 0.4 MG CAP.ER.24H PO SCH (08:59)
[2019-01-30 12:22] LABS: Glucose,Whole Blood 114 mg/dL (75-99)
[2019-01-30 17:47] LABS: Glucose,Whole Blood 177 mg/dL (75-99)
--- NOTE | 2019-01-30 20:11 | P.PN ---
Subjective Progress Note Date: 01/30/19 Principal diagnosis: Schizoaffective Disorder Found him in better mood. Reports gradual improvement in his mood. Medication complaint and tolerating them well. Working on his coping skills. Denies hearing any voices or seeing things. Did sleep better last night MSE :AAOx 4. fair eye contact. Mood depressed. Has no suicidal ideation. No psychoses. Insight and judgment improving Will continue to adjust medications accordingly Objective - Vital Signs Vital signs: Vital Signs Temp 98.1 F 01/30/19 06:21 Pulse 64 01/30/19 06:21 Resp 14 01/30/19 06:21 BP 117/65 01/30/19 06:21 Pulse Ox 97 01/23/19 22:15 - Labs CBC & Chem 7: 01/23/19 13:27 01/23/19 13:27 Labs: Abnormal Lab Results - Last 24 Hours (Table) 01/30/19 01/30/19 01/30/19 Range/Units 06:17 12:20 17:43 POC Glucose (mg/dL) 155 H 114 H 177 H (75-99) mg/dL
[2019-01-30 20:20] LABS: Glucose,Whole Blood 331 mg/dL (75-99)
[2019-01-30] MEDS: risperiDONE 2 MG TAB PO SCH (21:27)
[2019-01-30] MEDS: ATORVASTATIN 10 MG TAB PO SCH (21:28)
[2019-01-30] MEDS: INSULIN DETEMIR (LEVEMIR) 100 UNIT/ML SYR SQ SCH (21:28)
[2019-01-31] MEDS: LORazepam 1 MG TAB PO PRN ×2 (01:10→21:14)
[2019-01-31] MEDS: LEVOTHYROXINE 125 MCG TAB PO SCH (06:14)
[2019-01-31 06:37] LABS: Glucose,Whole Blood 129 mg/dL (75-99)
[2019-01-31] MEDS: INSULIN REGULAR 100 UNIT/ML VIAL SQ SCH ×3 (07:27→17:37)
[2019-01-31] MEDS: INSULIN ASPART (NovoLOG) 100 UNIT/ML VIAL SQ SCH ×4 (07:28→21:15)
[2019-01-31] MEDS: ASPIRIN 81 MG PO SCH (08:23)
[2019-01-31] MEDS: DIVALPROEX 500 MG TABLET.DR PO SCH ×2 (08:23→21:13)
[2019-01-31] MEDS: metFORMIN 500 MG TAB PO SCH ×2 (08:23→21:13)
[2019-01-31] MEDS: LITHIUM CARBONATE 300 MG CAP PO SCH ×2 (08:23→21:13)
[2019-01-31] MEDS: TRIHEXYPHENIDYL 2 MG TAB PO SCH ×2 (08:23→21:14)
[2019-01-31] MEDS: TAMSULOSIN 0.4 MG CAP.ER.24H PO SCH (08:23)
[2019-01-31] MEDS: CHOLECALCIFEROL 1,000 UNIT TAB PO SCH (08:24)
[2019-01-31] MEDS: LISINOPRIL 5 MG TAB PO SCH (08:24)
[2019-01-31] MEDS: NICOTINE 21MG/24HR PATCH TRANSDERM SCH (08:26)
--- NOTE | 2019-01-31 12:19 | P.PN ---
Subjective Progress Note Date: 01/31/19 Principal diagnosis: Schizoaffective Disorder Found him in better mood. Reports gradual improvement in his mood. Medication complaint and tolerating them well. Working on his coping skills. Denies hearing any voices or seeing things. Did sleep better last night MSE :AAOx 4. fair eye contact. Mood depressed. Has no suicidal ideation. No psychoses. Insight and judgment improving Will continue to adjust medications accordingly Found him in better mood. He is paranoid delusional and fixated about his father being mean towards him. He does not like him to be payee. Medication complaint and tolerating them well. Working on his coping skills. Denies hearing any voices or seeing things. Did sleep better last night MSE :AAOx 4. fair eye contact. Mood depressed. Has no suicidal ideation. Paranoid delusional. Insight and judgment improving Will continue to adjust medications accordingly Objective - Vital Signs Vital signs: Vital Signs Temp 97.9 F 01/31/19 01:10 Pulse 81 01/31/19 08:30 Resp 20 01/31/19 08:30 BP 115/56 01/31/19 08:30 Pulse Ox 97 01/23/19 22:15 Intake & Output 01/30/19 01/31/19 01/31/19 18:59 06:59 18:59 Weight 117.934 kg - Labs CBC & Chem 7: 01/23/19 13:27 01/23/19 13:27 Labs: Abnormal Lab Results - Last 24 Hours (Table) 01/30/19 01/30/19 01/30/19 Range/Units 12:20 17:43 20:16 POC Glucose (mg/dL) 114 H 177 H 331 H (75-99) mg/dL 01/31/19 Range/Units 06:18 POC Glucose (mg/dL) 129 H (75-99) mg/dL
[2019-01-31 12:46] LABS: Glucose,Whole Blood 131 mg/dL (75-99)
[2019-01-31 17:36] LABS: Glucose,Whole Blood 136 mg/dL (75-99)
[2019-01-31 20:21] LABS: Glucose,Whole Blood 296 mg/dL (75-99)
[2019-01-31] MEDS: ATORVASTATIN 10 MG TAB PO SCH (21:13)
[2019-01-31] MEDS: risperiDONE 2 MG TAB PO SCH (21:13)
[2019-01-31] MEDS: INSULIN DETEMIR (LEVEMIR) 100 UNIT/ML SYR SQ SCH (21:14)
[2019-02-01] MEDS: LEVOTHYROXINE 125 MCG TAB PO SCH (06:20)
[2019-02-01 06:26] LABS: Glucose,Whole Blood 136 mg/dL (75-99)
[2019-02-01] MEDS: INSULIN REGULAR 100 UNIT/ML VIAL SQ SCH ×3 (07:41→17:43)
[2019-02-01] MEDS: INSULIN ASPART (NovoLOG) 100 UNIT/ML VIAL SQ SCH ×4 (07:42→20:44)
[2019-02-01] MEDS: ASPIRIN 81 MG PO SCH (08:36)
[2019-02-01] MEDS: LITHIUM CARBONATE 300 MG CAP PO SCH ×2 (08:36→21:05)
[2019-02-01] MEDS: CHOLECALCIFEROL 1,000 UNIT TAB PO SCH (08:36)
[2019-02-01] MEDS: DIVALPROEX 500 MG TABLET.DR PO SCH ×2 (08:36→21:05)
[2019-02-01] MEDS: TRIHEXYPHENIDYL 2 MG TAB PO SCH ×2 (08:37→21:06)
[2019-02-01] MEDS: NICOTINE 21MG/24HR PATCH TRANSDERM SCH (08:37)
[2019-02-01] MEDS: TAMSULOSIN 0.4 MG CAP.ER.24H PO SCH (08:37)
[2019-02-01] MEDS: metFORMIN 500 MG TAB PO SCH ×2 (08:37→21:05)
[2019-02-01] MEDS: LISINOPRIL 5 MG TAB PO SCH (08:38)
[2019-02-01 12:27] LABS: Glucose,Whole Blood 124 mg/dL (75-99)
[2019-02-01 17:53] LABS: Glucose,Whole Blood 160 mg/dL (75-99)
[2019-02-01 20:14] LABS: Glucose,Whole Blood 255 mg/dL (75-99)
[2019-02-01] MEDS: INSULIN DETEMIR (LEVEMIR) 100 UNIT/ML SYR SQ SCH (20:44)
[2019-02-01] MEDS: ATORVASTATIN 10 MG TAB PO SCH (21:05)
[2019-02-01] MEDS: risperiDONE 2 MG TAB PO SCH (21:05)
[2019-02-01] MEDS: LORazepam 1 MG TAB PO PRN (22:16)
[2019-02-02] MEDS: LEVOTHYROXINE 125 MCG TAB PO SCH (06:22)
[2019-02-02 06:32] LABS: Glucose,Whole Blood 160 mg/dL (75-99)
[2019-02-02] MEDS: INSULIN ASPART (NovoLOG) 100 UNIT/ML VIAL SQ SCH ×4 (08:01→20:15)
[2019-02-02] MEDS: INSULIN REGULAR 100 UNIT/ML VIAL SQ SCH ×3 (08:02→18:19)
[2019-02-02] MEDS: CHOLECALCIFEROL 1,000 UNIT TAB PO SCH (08:35)
[2019-02-02] MEDS: TRIHEXYPHENIDYL 2 MG TAB PO SCH ×2 (08:35→20:15)
[2019-02-02] MEDS: TAMSULOSIN 0.4 MG CAP.ER.24H PO SCH (08:35)
[2019-02-02] MEDS: DIVALPROEX 500 MG TABLET.DR PO SCH ×2 (08:36→20:14)
[2019-02-02] MEDS: LITHIUM CARBONATE 300 MG CAP PO SCH ×2 (08:36→20:14)
[2019-02-02] MEDS: LISINOPRIL 5 MG TAB PO SCH (08:36)
[2019-02-02] MEDS: ASPIRIN 81 MG PO SCH (08:36)
[2019-02-02] MEDS: metFORMIN 500 MG TAB PO SCH ×2 (08:37→20:14)
[2019-02-02] MEDS: NICOTINE 21MG/24HR PATCH TRANSDERM SCH (09:39)
[2019-02-02 12:40] LABS: Glucose,Whole Blood 142 mg/dL (75-99)
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
[2019-02-02 17:37] LABS: Glucose,Whole Blood 170 mg/dL (75-99)
[2019-02-02 20:06] LABS: Glucose,Whole Blood 291 mg/dL (75-99)
[2019-02-02] MEDS: risperiDONE 2 MG TAB PO SCH (20:14)
[2019-02-02] MEDS: ATORVASTATIN 10 MG TAB PO SCH (20:14)
[2019-02-02] MEDS: INSULIN DETEMIR (LEVEMIR) 100 UNIT/ML SYR SQ SCH (20:15)
[2019-02-02] MEDS: LORazepam 1 MG TAB PO PRN (22:16)
[2019-02-03] MEDS: LEVOTHYROXINE 125 MCG TAB PO SCH (06:14)
[2019-02-03 06:29] LABS: Glucose,Whole Blood 148 mg/dL (75-99)
[2019-02-03] MEDS: INSULIN REGULAR 100 UNIT/ML VIAL SQ SCH ×3 (08:25→18:22)
[2019-02-03] MEDS: INSULIN ASPART (NovoLOG) 100 UNIT/ML VIAL SQ SCH ×4 (08:26→19:41)
[2019-02-03] MEDS: LISINOPRIL 5 MG TAB PO SCH (08:37)
[2019-02-03] MEDS: LITHIUM CARBONATE 300 MG CAP PO SCH ×2 (08:40→20:51)
[2019-02-03] MEDS: metFORMIN 500 MG TAB PO SCH ×2 (08:40→20:51)
[2019-02-03] MEDS: TAMSULOSIN 0.4 MG CAP.ER.24H PO SCH ×2 (08:40→08:46)
[2019-02-03] MEDS: CHOLECALCIFEROL 1,000 UNIT TAB PO SCH (08:40)
[2019-02-03] MEDS: DIVALPROEX 500 MG TABLET.DR PO SCH ×2 (08:40→20:51)
[2019-02-03] MEDS: ASPIRIN 81 MG PO SCH (08:41)
[2019-02-03] MEDS: TRIHEXYPHENIDYL 2 MG TAB PO SCH ×2 (08:41→20:51)
[2019-02-03] MEDS: NICOTINE 21MG/24HR PATCH TRANSDERM SCH (08:46)
[2019-02-03 12:56] LABS: Glucose,Whole Blood 204 mg/dL (75-99)
[2019-02-03 17:37] LABS: Glucose,Whole Blood 172 mg/dL (75-99)
[2019-02-03 19:32] LABS: Glucose,Whole Blood 251 mg/dL (75-99)
[2019-02-03] MEDS: INSULIN DETEMIR (LEVEMIR) 100 UNIT/ML SYR SQ SCH (19:42)
[2019-02-03] MEDS: ATORVASTATIN 10 MG TAB PO SCH (20:51)
[2019-02-03] MEDS: risperiDONE 2 MG TAB PO SCH (20:51)
[2019-02-03] MEDS: LORazepam 1 MG TAB PO PRN (20:55)
[2019-02-04] MEDS: LEVOTHYROXINE 125 MCG TAB PO SCH (06:08)
[2019-02-04 06:18] LABS: Glucose,Whole Blood 148 mg/dL (75-99)
[2019-02-04] MEDS: INSULIN ASPART (NovoLOG) 100 UNIT/ML VIAL SQ SCH ×4 (08:20→20:38)
[2019-02-04] MEDS: INSULIN REGULAR 100 UNIT/ML VIAL SQ SCH ×3 (08:22→18:10)
[2019-02-04] MEDS: ASPIRIN 81 MG PO SCH (08:38)
[2019-02-04] MEDS: LITHIUM CARBONATE 300 MG CAP PO SCH ×2 (08:38→20:42)
[2019-02-04] MEDS: DIVALPROEX 500 MG TABLET.DR PO SCH ×2 (08:38→20:42)
[2019-02-04] MEDS: LISINOPRIL 5 MG TAB PO SCH (08:39)
[2019-02-04] MEDS: CHOLECALCIFEROL 1,000 UNIT TAB PO SCH (08:39)
[2019-02-04] MEDS: metFORMIN 500 MG TAB PO SCH ×2 (08:39→20:41)
[2019-02-04] MEDS: TRIHEXYPHENIDYL 2 MG TAB PO SCH ×2 (08:40→20:40)
[2019-02-04] MEDS: TAMSULOSIN 0.4 MG CAP.ER.24H PO SCH (08:43)
[2019-02-04] MEDS: NICOTINE 21MG/24HR PATCH TRANSDERM SCH (08:43)
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
[2019-02-04 12:51] LABS: Glucose,Whole Blood 171 mg/dL (75-99)
[2019-02-04 17:15] LABS: Glucose,Whole Blood 162 mg/dL (75-99)
[2019-02-04 20:15] LABS: Glucose,Whole Blood 276 mg/dL (75-99)
[2019-02-04] MEDS: INSULIN DETEMIR (LEVEMIR) 100 UNIT/ML SYR SQ SCH (20:38)
[2019-02-04] MEDS: risperiDONE 2 MG TAB PO SCH (20:42)
[2019-02-04] MEDS: ATORVASTATIN 10 MG TAB PO SCH (20:42)
[2019-02-04] MEDS: LORazepam 1 MG TAB PO PRN (20:43)
[2019-02-05] MEDS: LEVOTHYROXINE 125 MCG TAB PO SCH (06:17)
[2019-02-05 06:27] LABS: Glucose,Whole Blood 173 mg/dL (75-99)
[2019-02-05] MEDS: INSULIN ASPART (NovoLOG) 100 UNIT/ML VIAL SQ SCH ×4 (07:34→20:54)
[2019-02-05] MEDS: INSULIN REGULAR 100 UNIT/ML VIAL SQ SCH ×3 (07:34→17:41)
[2019-02-05] MEDS: NICOTINE 21MG/24HR PATCH TRANSDERM SCH (07:39)
[2019-02-05] MEDS: TAMSULOSIN 0.4 MG CAP.ER.24H PO SCH (07:40)
[2019-02-05] MEDS: CHOLECALCIFEROL 1,000 UNIT TAB PO SCH (07:40)
[2019-02-05] MEDS: metFORMIN 500 MG TAB PO SCH ×2 (07:40→20:56)
[2019-02-05] MEDS: ASPIRIN 81 MG PO SCH (07:40)
[2019-02-05] MEDS: TRIHEXYPHENIDYL 2 MG TAB PO SCH ×2 (07:41→20:57)
[2019-02-05] MEDS: LITHIUM CARBONATE 300 MG CAP PO SCH ×2 (07:41→20:57)
[2019-02-05] MEDS: DIVALPROEX 500 MG TABLET.DR PO SCH ×2 (07:41→20:57)
[2019-02-05] MEDS: LISINOPRIL 5 MG TAB PO SCH (07:41)
[2019-02-05 09:46] VITALS: BMI 38.4
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
[2019-02-05 12:40] LABS: Glucose,Whole Blood 239 mg/dL (75-99)
[2019-02-05 17:55] LABS: Glucose,Whole Blood 278 mg/dL (75-99)
[2019-02-05 20:06] LABS: Glucose,Whole Blood 354 mg/dL (75-99)
[2019-02-05] MEDS: INSULIN DETEMIR (LEVEMIR) 100 UNIT/ML SYR SQ SCH (20:54)
[2019-02-05] MEDS: risperiDONE 2 MG TAB PO SCH (20:57)
[2019-02-05] MEDS: ATORVASTATIN 10 MG TAB PO SCH (20:57)
[2019-02-05] MEDS: LORazepam 1 MG TAB PO PRN (23:50)
[2019-02-06] MEDS: LEVOTHYROXINE 125 MCG TAB PO SCH (06:22)
[2019-02-06 06:33] LABS: Glucose,Whole Blood 211 mg/dL (75-99)
[2019-02-06] MEDS: INSULIN REGULAR 100 UNIT/ML VIAL SQ SCH ×3 (07:36→18:22)
[2019-02-06] MEDS: INSULIN ASPART (NovoLOG) 100 UNIT/ML VIAL SQ SCH ×4 (07:37→20:54)
[2019-02-06] MEDS: CHOLECALCIFEROL 1,000 UNIT TAB PO SCH (08:05)
[2019-02-06] MEDS: ASPIRIN 81 MG PO SCH (08:05)
[2019-02-06] MEDS: DIVALPROEX 500 MG TABLET.DR PO SCH ×2 (08:05→20:52)
[2019-02-06] MEDS: metFORMIN 500 MG TAB PO SCH ×2 (08:06→20:53)
[2019-02-06] MEDS: LITHIUM CARBONATE 300 MG CAP PO SCH ×2 (08:06→20:53)
[2019-02-06] MEDS: TAMSULOSIN 0.4 MG CAP.ER.24H PO SCH (08:06)
[2019-02-06] MEDS: LISINOPRIL 5 MG TAB PO SCH (08:06)
[2019-02-06] MEDS: TRIHEXYPHENIDYL 2 MG TAB PO SCH ×2 (08:11→20:52)
[2019-02-06] MEDS: NICOTINE 21MG/24HR PATCH TRANSDERM SCH (08:54)
--- NOTE | 2019-02-06 10:24 | P.PN ---
Progress Note - Text Interval history: The patient's found in his room he follows me to an interview room. He reports his mood is fine he indicates that he is hoping to be discharged soon. He has no questions regarding his psychotropic medications. He remains on one-to-one supervision there've been no reports of behavioral disturbance. He seems to be mainly isolating in his room he states the groups are useless and is done groups for 12 years. The psychiatric evaluation was reviewed. He appears to have a history of psychosis he was off of medication and was demonstrating erratic behavior. Mental status exam: The patient is a male appearing his stated age he is dressed in his own clothing. He indicates his mood is fine affect is con stricted he quickly denies having any suicidal or homicidal thoughts as well as any auditory or visual hallucinations or specific delusions. He demonstrates no tangential thinking loose associations or flight of ideas. He demonstrates no verbal or physical aggressiveness. He was directable during the session. Plan: The patient will continue on his current psychotropic medications. It appears we are awaiting appropriate placement. Vital signs reviewed. He is encouraged to participate in the milieu.
[2019-02-06 12:42] LABS: Glucose,Whole Blood 217 mg/dL (75-99)
[2019-02-06 17:37] LABS: Glucose,Whole Blood 273 mg/dL (75-99)
[2019-02-06 20:10] LABS: Glucose,Whole Blood 381 mg/dL (75-99)
[2019-02-06] MEDS: risperiDONE 2 MG TAB PO SCH (20:52)
[2019-02-06] MEDS: INSULIN DETEMIR (LEVEMIR) 100 UNIT/ML SYR SQ SCH (20:53)
[2019-02-06] MEDS: ATORVASTATIN 10 MG TAB PO SCH (20:53)
[2019-02-06] MEDS: LORazepam 1 MG TAB PO PRN (23:11)
[2019-02-07] MEDS: LEVOTHYROXINE 125 MCG TAB PO SCH (07:11)
[2019-02-07 07:13] LABS: Glucose,Whole Blood 231 mg/dL (75-99)
[2019-02-07] MEDS: INSULIN ASPART (NovoLOG) 100 UNIT/ML VIAL SQ SCH ×4 (07:50→20:56)
[2019-02-07] MEDS: INSULIN REGULAR 100 UNIT/ML VIAL SQ SCH ×3 (07:51→17:45)
[2019-02-07] MEDS: ASPIRIN 81 MG PO SCH (07:53)
[2019-02-07] MEDS: LITHIUM CARBONATE 300 MG CAP PO SCH ×2 (07:54→20:58)
[2019-02-07] MEDS: CHOLECALCIFEROL 1,000 UNIT TAB PO SCH (07:54)
[2019-02-07] MEDS: TAMSULOSIN 0.4 MG CAP.ER.24H PO SCH ×2 (07:54→08:17)
[2019-02-07] MEDS: DIVALPROEX 500 MG TABLET.DR PO SCH ×2 (07:54→20:57)
[2019-02-07] MEDS: metFORMIN 500 MG TAB PO SCH ×2 (07:54→20:58)
[2019-02-07] MEDS: LISINOPRIL 5 MG TAB PO SCH (07:54)
[2019-02-07] MEDS: TRIHEXYPHENIDYL 2 MG TAB PO SCH ×2 (07:55→20:58)
[2019-02-07] MEDS: NICOTINE 21MG/24HR PATCH TRANSDERM SCH (08:00)
--- NOTE | 2019-02-07 12:22 | P.PN ---
Progress Note - Text Interval history: The patient is found in the hallway he follows me to an interview room. He indicates his mood is okay but is frustrated that he still on the mental health unit. He is hoping to go back to his prior residence. He avoids going to groups as he feels they are ineffective. He isolates in his room but is seen ambulating at times. He does go down to meals. He indicates he sleeping at night. Mental status exam: The patient is an overweight male he is dressed in his own clothing. He is pleasant and cooperative today. He indicates he has no suicidal or homicidal ideation intent or plan. He reports no auditory or visual hallucinations or any specific delusions. He verbalizes feelings of frustration that he still here on the mental health unit. He feels he is able to provide care for himself and there is no imminent safety risk. Insight and judgment grossly intact. He demonstrates no involuntary repetitive movements. He demonstrates no verbal or physical aggressiveness. Plan: The patient will continue on his current psychotropic medications. We will monitor him for safety and encourage participation in the milieu. We will continue to explore appropriate placement upon discharge.
[2019-02-07 12:44] LABS: Glucose,Whole Blood 225 mg/dL (75-99)
[2019-02-07 17:16] LABS: Glucose,Whole Blood 208 mg/dL (75-99)
[2019-02-07 20:10] LABS: Glucose,Whole Blood 177 mg/dL (75-99)
[2019-02-07] MEDS: risperiDONE 2 MG TAB PO SCH (20:54)
[2019-02-07] MEDS: INSULIN DETEMIR (LEVEMIR) 100 UNIT/ML SYR SQ SCH (20:55)
[2019-02-07] MEDS: ATORVASTATIN 10 MG TAB PO SCH (20:58)
[2019-02-07] MEDS: LORazepam 1 MG TAB PO PRN (22:51)
[2019-02-08] MEDS: LEVOTHYROXINE 125 MCG TAB PO SCH (06:43)
[2019-02-08 07:02] LABS: Glucose,Whole Blood 151 mg/dL (75-99)
[2019-02-08] MEDS: INSULIN REGULAR 100 UNIT/ML VIAL SQ SCH ×3 (08:58→17:35)
[2019-02-08] MEDS: INSULIN ASPART (NovoLOG) 100 UNIT/ML VIAL SQ SCH ×4 (09:02→20:12)
[2019-02-08] MEDS: CHOLECALCIFEROL 1,000 UNIT TAB PO SCH (09:31)
[2019-02-08] MEDS: ASPIRIN 81 MG PO SCH (09:31)
[2019-02-08] MEDS: DIVALPROEX 500 MG TABLET.DR PO SCH ×2 (09:31→20:13)
[2019-02-08] MEDS: LISINOPRIL 5 MG TAB PO SCH (09:32)
[2019-02-08] MEDS: TRIHEXYPHENIDYL 2 MG TAB PO SCH ×2 (09:32→20:14)
[2019-02-08] MEDS: metFORMIN 500 MG TAB PO SCH ×2 (09:33→20:13)
[2019-02-08] MEDS: NICOTINE 21MG/24HR PATCH TRANSDERM SCH (09:34)
[2019-02-08] MEDS: LITHIUM CARBONATE 300 MG CAP PO SCH ×2 (09:34→20:13)
[2019-02-08] MEDS: TAMSULOSIN 0.4 MG CAP.ER.24H PO SCH (09:34)
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
[2019-02-08 12:55] LABS: Glucose,Whole Blood 151 mg/dL (75-99)
[2019-02-08 17:20] LABS: Glucose,Whole Blood 232 mg/dL (75-99)
[2019-02-08 19:57] LABS: Glucose,Whole Blood 283 mg/dL (75-99)
[2019-02-08] MEDS: INSULIN DETEMIR (LEVEMIR) 100 UNIT/ML SYR SQ SCH (20:13)
[2019-02-08] MEDS: ATORVASTATIN 10 MG TAB PO SCH (20:14)
[2019-02-08] MEDS: risperiDONE 2 MG TAB PO SCH (20:15)
[2019-02-08] MEDS: LORazepam 1 MG TAB PO PRN (22:48)
[2019-02-09] MEDS: LEVOTHYROXINE 125 MCG TAB PO SCH (06:52)
[2019-02-09 06:56] LABS: Glucose,Whole Blood 203 mg/dL (75-99)
[2019-02-09] MEDS: INSULIN ASPART (NovoLOG) 100 UNIT/ML VIAL SQ SCH ×4 (08:25→20:24)
[2019-02-09] MEDS: INSULIN REGULAR 100 UNIT/ML VIAL SQ SCH ×3 (08:27→17:37)
[2019-02-09] MEDS: CHOLECALCIFEROL 1,000 UNIT TAB PO SCH (08:45)
[2019-02-09] MEDS: DIVALPROEX 500 MG TABLET.DR PO SCH ×2 (08:45→21:22)
[2019-02-09] MEDS: metFORMIN 500 MG TAB PO SCH ×2 (08:46→21:22)
[2019-02-09] MEDS: LITHIUM CARBONATE 300 MG CAP PO SCH ×2 (08:46→21:22)
[2019-02-09] MEDS: ASPIRIN 81 MG PO SCH (08:46)
[2019-02-09] MEDS: TRIHEXYPHENIDYL 2 MG TAB PO SCH ×2 (08:46→21:22)
[2019-02-09] MEDS: LISINOPRIL 5 MG TAB PO SCH (08:47)
[2019-02-09] MEDS: NICOTINE 21MG/24HR PATCH TRANSDERM SCH (08:49)
[2019-02-09] MEDS: TAMSULOSIN 0.4 MG CAP.ER.24H PO SCH (08:49)
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
[2019-02-09 12:45] LABS: Glucose,Whole Blood 159 mg/dL (75-99)
[2019-02-09 17:18] LABS: Glucose,Whole Blood 225 mg/dL (75-99)
[2019-02-09] MEDS: INSULIN DETEMIR (LEVEMIR) 100 UNIT/ML SYR SQ SCH (20:25)
[2019-02-09 20:31] LABS: Glucose,Whole Blood 272 mg/dL (75-99)
[2019-02-09] MEDS: risperiDONE 2 MG TAB PO SCH (21:22)
[2019-02-09] MEDS: ATORVASTATIN 10 MG TAB PO SCH (21:22)
[2019-02-09] MEDS: LORazepam 1 MG TAB PO PRN (21:24)
[2019-02-10] MEDS: LEVOTHYROXINE 125 MCG TAB PO SCH (06:14)
[2019-02-10 06:22] LABS: Glucose,Whole Blood 216 mg/dL (75-99)
[2019-02-10 06:39] VITALS: TEMP 97.6
[2019-02-10] MEDS: INSULIN ASPART (NovoLOG) 100 UNIT/ML VIAL SQ SCH ×4 (08:13→21:21)
[2019-02-10] MEDS: NICOTINE 21MG/24HR PATCH TRANSDERM SCH (08:13)
[2019-02-10] MEDS: TAMSULOSIN 0.4 MG CAP.ER.24H PO SCH (08:13)
[2019-02-10] MEDS: INSULIN REGULAR 100 UNIT/ML VIAL SQ SCH ×3 (08:14→17:25)
[2019-02-10] MEDS: TRIHEXYPHENIDYL 2 MG TAB PO SCH ×2 (08:15→21:22)
[2019-02-10] MEDS: DIVALPROEX 500 MG TABLET.DR PO SCH ×2 (08:15→21:22)
[2019-02-10] MEDS: LITHIUM CARBONATE 300 MG CAP PO SCH ×2 (08:15→21:22)
[2019-02-10] MEDS: metFORMIN 500 MG TAB PO SCH ×2 (08:15→21:21)
[2019-02-10] MEDS: CHOLECALCIFEROL 1,000 UNIT TAB PO SCH (08:15)
[2019-02-10] MEDS: LISINOPRIL 5 MG TAB PO SCH (08:15)
[2019-02-10] MEDS: ASPIRIN 81 MG PO SCH (08:16)
[2019-02-10 12:21] LABS: Glucose,Whole Blood 165 mg/dL (75-99)
[2019-02-10 17:20] LABS: Glucose,Whole Blood 252 mg/dL (75-99)
[2019-02-10 20:26] LABS: Glucose,Whole Blood 317 mg/dL (75-99)
[2019-02-10] MEDS: INSULIN DETEMIR (LEVEMIR) 100 UNIT/ML SYR SQ SCH (21:21)
[2019-02-10] MEDS: risperiDONE 2 MG TAB PO SCH (21:22)
[2019-02-10] MEDS: ATORVASTATIN 10 MG TAB PO SCH (21:22)
[2019-02-11] MEDS: LORazepam 1 MG TAB PO PRN (01:04)
[2019-02-11 01:30] VITALS: BP 121/59; PULSE 87; RESP 18
[2019-02-11] MEDS: LEVOTHYROXINE 125 MCG TAB PO SCH (06:54)
[2019-02-11 07:04] LABS: Glucose,Whole Blood 187 mg/dL (75-99)
[2019-02-11] MEDS: INSULIN ASPART (NovoLOG) 100 UNIT/ML VIAL SQ SCH (08:29)
[2019-02-11] MEDS: INSULIN REGULAR 100 UNIT/ML VIAL SQ SCH (08:30)
[2019-02-11] MEDS: CHOLECALCIFEROL 1,000 UNIT TAB PO SCH (08:31)
[2019-02-11] MEDS: TRIHEXYPHENIDYL 2 MG TAB PO SCH (08:31)
[2019-02-11] MEDS: TAMSULOSIN 0.4 MG CAP.ER.24H PO SCH (08:32)
[2019-02-11] MEDS: LITHIUM CARBONATE 300 MG CAP PO SCH (08:32)
[2019-02-11] MEDS: ASPIRIN 81 MG PO SCH (08:32)
[2019-02-11] MEDS: metFORMIN 500 MG TAB PO SCH (08:32)
[2019-02-11] MEDS: DIVALPROEX 500 MG TABLET.DR PO SCH (08:32)
[2019-02-11] MEDS: NICOTINE 21MG/24HR PATCH TRANSDERM SCH (08:40)
[2019-02-11] MEDS: LISINOPRIL 5 MG TAB PO SCH (09:31)
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
== END 2019-02-11 10:32 | DRG 885 ==
LOC: EC 19:40 → 3MHU 01-23 21:31
PROVIDERS: ADMIT Psychiatry & Neurology Psychiatry; ATTEND Psychiatry & Neurology Psychiatry
DX: F25.9 Schizoaffective disorder, unspecified (principal); E03.9 Hypothyroidism, unspecified; E11.9 Type 2 diabetes mellitus without complications; F17.210 Nicotine dependence, cigarettes, uncomplicated; F32.9 Major depressive disorder, single episode, unspecified; F41.9 Anxiety disorder, unspecified; I10 Essential (primary) hypertension; Z65.3 Problems related to other legal circumstances; Z79.4 Long term (current) use of insulin; Z79.82 Long term (current) use of aspirin; Z79.890 Hormone replacement therapy; Z79.899 Other long term (current) drug therapy; E66.9 Obesity, unspecified; Z68.39 Body mass index [BMI] 39.0-39.9, adult; T43.96XA Underdosing of unspecified psychotropic drug, initial encounter; Z91.128 Patient's intentional underdosing of medication regimen for other reason; N40.0 Benign prostatic hyperplasia without lower urinary tract symptoms; Z62.810 Personal history of physical and sexual abuse in childhood
CPT/HCPCS: 36415; 80053; 80061; 80164; 80165; 80178; 80306; 81001; 82075; 82140; 83036; 85025; 99285